=== PATIENT | female | born 1970 | race Caucasian/White ===

== ENCOUNTER 2022-04-25 09:10 | Emergency (ER) | payer BC, SELFPAY ==
[2022-04-25 09:13] VITALS: BP 171/92; PULSE 79; RESP 16; TEMP 36.4; O2SAT 95; BMI 31.6
--- NOTE | 2022-04-25 09:23 | ED_ITS ---
HPI - Animal Bite General: Chief Complaint: Animal Bite Stated Complaint: Cat scratch Time Seen by Provider: 04/25/22 09:13 Source: patient Mode of arrival: ambulatory Limitations: no limitations History of Present Illness: 52-year-old female states she was bitten by a friend's cat this morning does have a puncture wound to the left ankle. She denies any pain states she is not up-to-date on her tetanus denies any other injuries. Associated symptoms: Deny chills, fever(s) or headache(s) Review of Systems Const: Denies: fever(s), chills, body aches or change in appetite Eyes: Denies: blurry vision or eye discomfort ENMT: Denies: throat pain or dental pain Card: Denies: chest pain Resp: Denies: dyspnea GI: Denies: abdominal pain, nausea, vomiting or diarrhea : Denies: dysuria Musc: Denies: neck pain or back pain Skin/Breast: Denies: rash Neuro: Denies: headache(s) Psych: Denies: depression Brian/Lymph: Denies: easy bruising All/Imm: Denies: urticaria PFSH ED PFSH: Social History (Updated 01/25/20 @ 12:34 by Lizzy Mandel LPN) Smoking and tobacco status: never smoked Physical Exam Const: COMMON NORMALS: no acute distress, patient oriented x3 and healthy appearing HENMT: COMMON NORMALS: normocephalic and atraumatic HEAD & SCALP: normocephalic and atraumatic Eye: COMMON NORMALS: conjunctivae normal CONJUNCTIVA: Yes conjunctivae normal Neck/C-Spine: COMMON NORMALS: full ROM and supple Chest: COMMONS NORMALS: normal inspection of the chest Resp: COMMON NORMALS: normal respiratory effort Cardio: COMMON NORMALS: regular rate and No murmurs present (Cardio) RATE: regular rate GI: INSPECTION: Yes normal to inspection Extremity: COMMON NORMALS: full ROM NARRATIVE EXTREMITY EXAM: cat bite to left ankle Neuro: COMMON NORMALS: patient oriented x3, moves all extremities and no focal motor deficits Psych: COMMON NORMALS: mental status grossly normal, Normal thought process present and cooperative THOUGHT PROCESS: Normal thought process present Skin: COMMON NORMALS: no rashes or lesions noted GENERAL SKIN EXAM: no rashes or lesions noted Course Vital Signs: Vital signs: Vital Signs Temperature 97.6 F 04/25/22 09:13 Pulse Rate 79 04/25/22 09:13 Respiratory Rate 16 04/25/22 09:13 Blood Pressure 171/92 04/25/22 09:13 Pulse Oximetry 95 04/25/22 09:13 Oxygen Delivery Me thod 04/25/22 09:13 MDM - Animal Bite Medical Decision Making Patient presents here with a cat bite to the ankle patient needs a tetanus updat e we will place her on Augmentin for prophylaxis well she is well-appearing here no serious injuries she is stable for discharge return if worsening. Discharge Plan Discharge Patient Disposition: Home Clinical Impression: Cat bite Qualifiers: Encounter type: initial encounter Qualified Code(s): W55.01XA - Bitten by cat, initial encounter Condition: Stable Prescriptions: New Augmentin 500-125 mg tablet 1 tab PO TID Qty: 15 0RF No Action levothyroxine 25 mcg capsule 25 mcg PO DAILY estradiol 0.0375 mg/24 hr patch weekly transdermal .2 TIMES WEEKLY sulfamethoxazole-trimethoprim [Bactrim DS] 800-160 mg tablet 1 tab PO BID 7 Days Qty: 14 0RF Discharge Orders: Discharge ED (Routine); Ordered 04/25/22 Ordered By: Lavelle Isidro Discharge Diet: Advance as tolerated Discharge Activity: Resume usual activity Patient Instructions: Animal Bite (ED) Coding Level of Care Code ED 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
[2022-04-25] MEDS: tetanus-dipt-pertussis 0.5 mL SDV IM (09:31)
== END 2022-04-25 09:34 | disposition home or self-care (01) ==
PROVIDERS: Emergency Provider Emergency Medicine
DX: S91.032A Puncture wound without foreign body, left ankle, initial encounter (principal); W55.01XA Bitten by cat, initial encounter; Z23 Encounter for immunization
CPT/HCPCS: 90471; 90715; 99283